=== PATIENT | male | born 2000 | race Caucasian/White ===

== ENCOUNTER 2019-07-16 15:05 | Emergency (ER) | payer BC ==
[2019-07-16] MEDS ORDERED: Ondansetron 4 MG Tab.DIS PO ONE (16:09)
[2019-07-16] MEDS ORDERED: Alum Hydrox/Mag Hydrox/Simeth 30 ML, Lidocaine 2% 15 ML PO ONE ×2 (16:10)
--- NOTE | 2019-07-16 16:15 | EDM.PDOC ---
ED HPI GENERAL MEDICAL PROBLEM - General Chief Complaint: Chest Pain Stated Complaint: VOMITING AND SOB Time Seen by Provider: 07/16/19 16:01 Source of Information: Reports: Patient History Limitations: Reports: No Limitations - History of Present Illness INITIAL COMMENTS - FREE TEXT/NARRATIVE: Patient is a 18-year-old male who presents with complaints of nausea, vomiting, and abdominal pain. Patient states that the abdominal pain started around 8:00 this morning. Around 1:00 this afternoon he started vomiting. After couple episodes of vomiting he developed midsternal chest pain and states that he feels like it is difficult for him to breathe. Patient has no chronic health conditions, however does have a history of anxiety. He has had no previous abdominal surgeries. Denies any diarrhea fever, or chills. Treatments SUPERVISING DEPUTY: Reports: Other (see below) Other Treatments SUPERVISING DEPUTY: none Left Chest Pain Score (Numeric/FACES): 9 - Related Data Allergies Allergy/AdvReac Type Severity Reaction Status Date / Time Penicillins Allergy Other Verified 07/16/19 15:21 Home Meds: Home Meds Methylphenidate HCl [Concerta] 36 mg PO DAILY 07/16/19 [History] Ondansetron [Zofran ODT] 4 mg PO Q6H PRN #10 tab.dis 07/16/19 [Rx] guanFACINE HCl [Guanfacine HCl] 2 mg PO BEDTIME 07/16/19 [History] Past Medical History Psychiatric History: Reports: ADHD Social & Family History - Tobacco Use Smoking Status *Q: Current Every Day Smoker Years of Tobacco use: 6 Packs/Tins Daily: 1 - Caffeine Use Caffeine Use: Reports: Coffee Other Caffeine Use: drinks a pot every day - Recreational Drug Use Recreational Drug Use: No ED ROS GENERAL - Review of Systems Review Of Systems: Comprehensive ROS is negative, except as noted in HPI. ED EXAM, GI/ABD - Physical Exam Exam: See Below Exam Limited By: No Limitations General Appearance: Alert, WD/WN, Mild Distress Respiratory/Chest: No Respiratory Distress, Lungs Clear, Normal Breath Sounds, No Accessory Muscle Use, Chest Non-Tender Cardiovascular: Normal Peripheral Pulses, Regular Rate, Rhythm, No Edema, No Gallop, No JVD, No Murmur, No Rub GI/Abdominal Exam: Normal Bowel Sounds, Soft, No Organomegaly, No Distention, No Abnormal Bruit, No Mass, Tender (Right lower quadrant and epigastric). No: Guarding, Rigid, Rebound Neurological: Alert, Oriented, CN II-XII Intact, Normal Cognition, Normal Gait, Normal Reflexes, No Motor/Sensory Deficits Psychiatric: Normal Affect, Normal Mood Skin Exam: Warm, Dry, Intact, Normal Color, No Rash Course - Vital Signs Last Recorded V/S: Last Vital Signs Temp 99.3 F 07/16/19 15:33 Pulse 95 07/16/19 15:33 Resp 20 07/16/19 15:33 BP 116/71 07/16/19 15:33 Pulse Ox 100 07/16/19 15:33 - Orders/Labs/Meds Meds: Medications Discontinued Medications Generic Name Dose Route Start Last Admin Trade Name Freq PRN Reason Stop Dose Admin Al Hydroxide/Mg Hydroxide 30 0 ml 07/16/19 16:10 07/16/19 16:50 ml/ Lidocaine HCl 15 ml PO 07/16/19 16:11 45 ml ONETIME ONE Administration Ondansetron HCl 4 mg 07/16/19 16:09 07/16/19 16:13 Zofran Odt PO 07/16/19 16:10 4 mg ONETIME ONE Administration - Re-Assessments/Exams Free Text/Narrative Re-Assessment/Exam: Recommendation was for patient to have a CBC, CMP, and possible abdomen CT completed, however patient declined a work-up stating that he does not have money for this. Discussed with him the possible complications including untreated appendicitis, sepsis, and/or if there is an undiagnosed intra- abdominal process. I have at this time ordered Zofran ODT as well as a GI cocktail to try to treat the patient's symptoms. We will further discuss a work -up with him after these medications start to work. 07/16/19 17:15 Patient verbalized relief from the nausea and chest discomfort with Zofran and GI cocktail. I further emphasized that I would recommend him allow that a work- up be completed to ensure that he does not have an appendicitis or other intra- abdominal process. He continued to refuse further work-up. Stating he wants to go home and take a shower. Emphasized that if his symptoms should worsen or he fails to improve over the next couple days that he should return for further work-up to be completed. AMA paperwork has been completed. Discharge instructions as documented. Departure - Departure Time of Disposition: 17:08 Disposition: Against Medical Advice 07 Condition: Fair Clinical Impression: Vomiting Qualifiers: Vomiting type: unspecified Vomiting Intractability: unspecified Nausea presence : with nausea Qualified Code(s): R11.2 - Nausea with vomiting, unspecified - Discharge Information *PRESCRIPTION DRUG MONITORING PROGRAM REVIEWED*: No *COPY OF PRESCRIPTION DRUG MONITORING REPORT IN PATIENT NOAH: No Prescriptions: Ondansetron [Zofran ODT] 4 mg PO Q6H PRN #10 tab.dis PRN Reason: Nausea/Vomiting Instructions: Nausea and Vomiting, Adult Referrals: Cristobal Bhatia MD [Primary Care Provider] - Forms: ED Department Discharge Additional Instructions: You were seen in the emergency department today for abdominal pain, vomiting, and pain in your chest. You declined a work-up including blood work, IV fluids , and a CT scan of the abdomen. As we discussed, you do have some tenderness in your right lower abdomen which could be consistent with appendicitis. It was recommended that further work-up be done, however you declined. An AGAINST MEDICAL ADVICE form was completed by you. As we discussed, if your symptoms should worsen or fail to improve over the next couple days, it is imperative that you return to the emergency department to have further work-up completed. A prescription for Zofran has been sent to [facility]. You may use this every 6 hours as needed for nausea or vomiting. It is recommended that you maintain a clear liquid diet for at least the next 24 hours and then advance as tolerated. Sepsis Event Note - Evaluation Sepsis Screening Result: No Definite Risk - Focused Exam Date Exam was Performed: 07/17/19 Time Exam was Performed: 11:57
== END 2019-07-16 17:10 | disposition left against medical advice (07) ==
LOC: JD.ED 15:05
DX: R11.2 Nausea with vomiting, unspecified (principal); F17.210 Nicotine dependence, cigarettes, uncomplicated; Z88.0 Allergy status to penicillin; Z79.899 Other long term (current) drug therapy
CPT/HCPCS: 99284; A9270; 99283

== ENCOUNTER 2023-04-29 16:05 | Emergency (ER) | payer BC ==
[2023-04-29] MEDS ORDERED: Sodium Chloride 0.9% 1,000 ML IV STA (16:38)
[2023-04-29] MEDS ORDERED: Ondansetron 4 MG/2 ML SDV IVPUSH ONE (16:38)
[2023-04-29] MEDS ORDERED: Sodium Chloride 0.9% 10 ML Syringe FLUSH PRN (16:38)
[2023-04-29] MEDS ORDERED: Loperamide 2 MG Cap PO ONE (16:39)
[2023-04-29 17:16] LABS: BASOPHILS ABSOLUTE AUTO 0.1 K/mm3 (0.0-0.2); BASOPHILS PERCENT AUTO 0.4 % (0.0-1.0); EOSINOPHILS ABSOLUTE AUTO 0.1 K/mm3 (0.0-0.4); EOSINOPHILS PERCENT AUTO 0.4 % (0.0-6.0); HEMATOCRIT 50.6 % (42.0-52.0); HEMOGLOBIN 17.6 gm/dl (14.0-18.0); IMMATURE GRAN ABSOLUTE AUTO 0.08 K/mm3 (0.00-0.05); IMMATURE GRAN PERCENT AUTO 0.6 % (0.0-0.4); LYMPHOCYTES ABSOLUTE AUTO 0.3 K/mm3 (1.0-4.8); LYMPHOCYTES PERCENT AUTO 2.4 % (24.0-44.0); MEAN CORPUSCULAR HEMOGLOBIN 30.8 pg (28.0-32.0); MEAN CORPUSCULAR HGB CONC 34.8 g/dl (32.0-36.0); MEAN CORPUSCULAR VOLUME 88.6 fl (83.0-99.0); MEAN PLATELET VOLUME 9.9 fl (9.4-12.4); MONOCYTES PERCENT AUTO 6.9 % (0.0-8.0); NEUTROPHILS ABSOLUTE AUTO 12.3 K/mm3 (1.8-7.7); NEUTROPHILS PERCENT AUTO 89.3 % (41.0-71.0); PLATELET COUNT,PLT 349 K/mm3 (150-400); RED BLOOD CELL COUNT 5.71 M/mm3 (4.52-5.90); WHITE BLOOD CELL COUNT,WBC 13.79 K/mm3 (3.9-11.3)
[2023-04-29 17:26] LABS: ALANINE AMINOTRANSFERASE,ALT 31 U/L (16-63); ALBUMIN 3.8 g/dl (3.4-5.0); ALKALINE PHOSPHATASE 58 U/L (46-116); ANION GAP 16.4 (5-15); ASPARTATE AMNIOTRANSFERASE,AST 22 U/L (15-37); BLOOD UREA NITROGEN,BUN 19 mg/dL (7-18); BUN/CREATININE RATIO 13.6 (14-18); CALCIUM 9.3 mg/dL (8.5-10.1); CARBON DIOXIDE,CO2 25 mEq/L (21-32); CHLORIDE,CL 103 mEq/L (98-107); CREATININE 1.4 mg/dL (0.7-1.3); ESTIMATED GFR 72 mL/min (>60); GLUCOSE RANDOM 130 mg/dL (70-99); LIPASE 20 U/L (16-77); POTASSIUM,K 4.4 mEq/L (3.5-5.1); PROTEIN TOTAL,TP 7.6 g/dl (6.4-8.2); SODIUM,NA 140 mEq/L (136-145)
== END 2023-04-29 19:11 | disposition home or self-care (01) ==
LOC: JD.ED 16:05
DX: K52.9 Noninfective gastroenteritis and colitis, unspecified (principal); Z88.0 Allergy status to penicillin; Z86.16 Personal history of COVID-19
CPT/HCPCS: 36415; 80053; 83690; 85025; 96361; 96374; 99284; A9270; J2405; J3490; J7030; 99283